=== PATIENT | male | born 1995 | race Caucasian/White ===

== ENCOUNTER 2018-05-10 07:27 | Emergency (ER) | payer SELFPAY ==
[2018-05-10 07:28] VITALS: BP 118/87; PULSE 72; RESP 16; TEMP 36.7; O2SAT 100; BMI 16.7
[2018-05-10 08:12] LABS: Absolute Lymphocyte Count 4.06 X10^3/ul (0.83-4.51); Absolute Neutrophil Count 3.7 X10^3/uL (2.0-7.7); Basophil# 0.02 X10^3/uL; Basophil% 0.2 % (0-1); Eosinophil# 0.24 X10^3/uL; Eosinophils% 2.8 % (0-5); Hematocrit 47.6 % (40-54); Hemoglobin 17.1 g/dl (13.0-16.5); Lymphocyte # 4.06 X10^3/ul (4.0); Lymphocyte % 47.2 % (19-41); Mean Corp Hgb Conc 35.9 g/gl (32-36); Mean Corpuscular Hgb 31.7 pg (27.0-32.0); Mean Corpuscular Volume 88.3 fL (80-94); Mean Platelet Vol. 11.5 fl (6.2-12.0); Monocyte# 0.53 X10^3/uL; Monocyte% 6.2 % (0-10); Neutrophil # 3.74 X10^3/uL (2.7-7.7); Neutrophil % 43.5 % (47-70); Platelet Count 138 K/mm3 (150-450); RBC Distribution Width CV 12.4 % (11.6-14.6); RBC Distribution Width SD 39.5 fl (35.1-43.9); Red Blood Count 5.39 M/mm3 (4.6-6.2); White Blood Count 8.6 K/mm3 (4.4-11.0)
[2018-05-10 08:13] LABS: POSITIVE COUNT NO; POSITIVE DIFFERENTIAL NO; POSITIVE MORPHOLOGY NO
[2018-05-10 08:19] LABS: Anion Gap 6 (5-15); BUN 10 mg/dL (7-18); BUN/Creat Ratio 10.8 RATIO (10-20); Chloride 103 mmol/L (98-107); Creatinine, Serum 0.92 mg/dL (0.70-1.30); EST Glomerular Filtration Rate 108 mL/min (>60); Est Glom Filt Rate - Afr Amer 130 mL/min (>60); Estimated Creatinine Clearance 104.15 ml/min; Glucose 114 mg/dL (74-106); Sodium Level 139 mmol/L (136-145)
--- NOTE | 2018-05-10 08:27 | ED.VISSUMM ---
- ER Visit Summary Date of Service: 05/10/18 Chief Complaint: Intermittent left lower quadrant abdominal pain and diarrhea for weeks to months History of Present Illness: The patient is a 23 M who presents with left lower quadrant pain. Initially states the pain was intermittent and described as pain. He had intermittent diarrhea as well. He reports over the past week the pain is constant. There is no radiation. There is no complaint of fever, chills or night sweats. He denies weight gain or weight loss. He denies dysuria, frequency, urgency or hematuria. He denies nausea or vomiting. He denies history of any abdominal surgery. He denies history of renal ureterolithiasis. He reports blood with bowel movement yesterday and on toilet paper. He denies any URI, ocular, visual or auditory symptoms. He denies any cardiac or respiratory symptoms. There is no history of trauma. He has not noted any rash or skin lesions. He denies myalgias arthralgias. Physical Examination: Vital signs noted and blood pressure slightly elevated 118/87. He is not febrile. Head is atraumatic normocephalic. Pupils are equal round reactive. Extraocular muscles are intact. TMs are pearly white with landmarks noted. Nares patent with no drainage. Posterior pharynx without erythema or exudate. Uvula is midline. There is no dysphonia or dysphasia. Trachea is midline. There is no stridor with auscultation of the neck. Heart is regular without murmur, gallop or rub. S1 and S2 are normal. Lungs are clear to auscultation with good movement of air bilaterally. Abdomen is scaphoid nontender with slightly increased bowel sounds. There is no evidence of inguinal or umbilical hernia. There is no CVA tenderness. There is no inguinal lymphadenopathy. There is no inguinal mass. There is no penile lesions or discharge noted. Rectal exam reveals evidence of hemorrhoid. Stool is brown. There is no active bleeding noted. There is slight irritation of the anal mucosa. Prostate was normal size and nontender. Test Results: CBC revealed elevated hemoglobin of 17.1 and platelet count was low at 138,000. There was 44 segs no bands and 47% lymphocytes. White count was normal. Basic metabolic panel was unremarkable. Blood sugar was slightly elevated at 114. Emergency Department Course and Treatment: With history of intermittent chronic diarrhea suspect this may represent irritable bowel versus possible inflammatory bowel disorder. Basic metabolic panel was obtained to assess electrolytes and renal function. Specifically potassium. CBC was obtained to evaluate for eosinophilia with chronic diarrhea. Treatment Plan: Home-going instructions regarding abdominal pain and irritable bowel syndrome was given to the patient. He was referred to [facility] since he is uninsured. Disposition: Discharged to home Impression: 1. Left lower quadrant abdominal pain with diarrhea of unknown etiology 2. Thrombocytopenia of unknown etiology This note was generated with [employer] dictation software. It may contain incorrect words, spelling, and punctuation that were not noted in review of the chart prior to signing ED Disposition - Plan for ED Patient: Disposition: Home or Assisted Living Chief Complaint: Abd Pain Instructions: ED Abdominal Pain Unkn Cause Male, ED IBS Prescriptions: Dicyclomine HCl [Bentyl] 20 mg PO TIDAC #20 cap Referrals: Care Physician,No Primary [Primary Care Provider] - Lizett Marks [NON-STAFF] - 1 Week
== END 2018-05-10 09:10 | disposition home or self-care (01) ==
PROVIDERS: Emergency Provider Emergency Medicine
DX: R10.32 Left lower quadrant pain (principal); R19.7 Diarrhea, unspecified; D69.6 Thrombocytopenia, unspecified; K64.4 Residual hemorrhoidal skin tags
CPT/HCPCS: 36415; 80048; 85025; 99282